=== PATIENT | female | born 1965 | race Caucasian/White ===

== ENCOUNTER 2018-02-05 13:17 | Outpatient (CLI) | payer MEDICARE | END 2018-02-05 13:18 | disposition home or self-care (01) | LOC: BICMAMMO 13:17 | PROVIDERS: ATTEND Family Medicine | DX: Z12.31 Encounter for screening mammogram for malignant neoplasm of breast (principal) | CPT/HCPCS: 77063; 77067 ==

== ENCOUNTER 2018-09-05 14:28 | Outpatient (CLI) | payer MEDICARE ==
[~2018-09-05 14:28] MED LIST: Gadobenate Dimeglumine 529 MG/1 ML (20ML VIAL) ONE
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
== END 2018-09-05 14:29 | disposition home or self-care (01) ==
LOC: BICMRI 14:28
PROVIDERS: ATTEND Physician Assistant Surgical
DX: M51.14 Intervertebral disc disorders with radiculopathy, thoracic region (principal)
CPT/HCPCS: 72157; 82565; A9579

== ENCOUNTER 2018-11-11 17:35 | Emergency (ER) | payer MEDICARE ==
[~2018-11-11 17:35] MED LIST changes: -Gadobenate Dimeglumine 529 MG/1 ML (20ML VIAL) ONE; +ISOVUE-370 76%-LOCM 1 ML ONE
[2018-11-11] MEDS ORDERED: Acetaminophen 500 MG TAB ONE (18:09)
[2018-11-11] MEDS ORDERED: diphenhydrAMINE 50 MG/ML VIAL ONE ×2 (18:09→18:11)
[2018-11-11] MEDS ORDERED: Metoclopramide HCl 10 MG/2 ML VIAL ONE (18:09)
[2018-11-11 18:57] LABS: #Eosinphils 0.1 thou/uL (0.0-0.7); #Lymphocytes 1.9 thou/uL (1.20-3.40); #Monocytes 0.8 thou/uL (0.11-0.59); %Basophils 0.4 % (0.0-1.0); %Eosinophils 1.4 % (0.0-10.0); %Lymphocytes 21.5 % (21.0-51.0); %Monocytes 9.1 % (0.0-10.0); %Neutrophils 67.6 % (42.0-75.0); Hemoglobin 12.1 g/dL (12.0-16.0); Mean Corpuscular HGB CONC 33.7 g/dL (32.0-36.0); Mean Corpuscular Hemoglobin 31.2 pg (27.0-31.0); Mean Corpuscular Volume 92.4 fL (78.0-98.0); Mean Platelet Volume 8.9 fL (7.4-10.4); Platelet Count 228 thou/uL (130-400); RBC Distribution Width 11.1 % (11.5-14.5); Red Blood Cell (RBC) Count 3.87 mill/uL (4.20-5.40); White Blood Cell (WBC) Count 8.8 thou/uL (4.8-10.8)
[2018-11-11 19:02] LABS: Bilirubin Negative (Negative); Blood, Urine Negative (Negative); Clarity CLEAR (Clear); Glucose, Urine (Dipstick) Negative (Negative); Leukocyte Moderate (Negative); Nitrite Negative (Negative); Protein, Urine (Dipstick) Negative (Neg-Trace); Specific Gravity, Urine 1.008 (1.002-1.036); Urobilinogen 0.2 mg/dL (0.2-1.0); pH, Urine 5.5 (5.0-9.0)
[2018-11-11 19:04] LABS: Bacteria/HPF None Seen HPF (None Seen); Hyaline Casts/LPF 0-3 HYALINE CAST LPF (0-3 Hyaline); RBC/HPF 0-3 HPF (0-3); Squamous Epithelial 0-3 HPF (0-3); WBC/HPF 21-50 HPF (0-3)
[2018-11-11 19:18] LABS: ALT (SGPT) 33 U/L (8-55); AST (SGOT) 25 U/L (5-34); Alkaline Phosphatase 44 U/L (40-150); Anion Gap 15 mmol/L (10-20); BUN (Urea Nitrogen) 8 mg/dL (9.8-20.1); Bilirubin, Total 0.8 mg/dL (0.2-1.2); Calc. Creatinine Clearance 0 mL/min (70-130); Calcium 9.4 mg/dL (7.8-10.44); Carbon Dioxide 24 mmol/L (22-29); Chloride 105 mmol/L (98-107); Estimated GFR-MDRD 79; Globulin 2.1 g/dL (2.4-3.5); Glucose 102 mg/dL (70-105); Lipase 24 U/L (8-78); Potassium 3.1 mmol/L (3.5-5.1); Protein, Total 6.1 g/dL (6.0-8.3); Sodium 141 mmol/L (136-145)
[2018-11-11] MEDS ORDERED: Potassium Chloride 20 MEQ TAB ONE (19:24)
--- NOTE | 2018-11-11 20:02 | CT ---
CONTRAST ENHANCED CT IMAGES ABDOMEN AND PELVIS: History: Abdominal pain for two weeks. Technique: Contrast enhanced CT images of the abdomen and pelvis performed. FINDINGS: Images demonstrate the lung bases to be unremarkable. No evidence of free intraperitoneal air is seen. The liver and spleen are unremarkable. The gallbladder has been surgically removed. The pancreas is u nremarkable. Adrenal glands and kidneys are unremarkable. No evidence of periaortic lymphadenopathy is seen. The small bowel is unremarkable. A normal appendix is not visualized. The colon is unremarkable. No evidence of free intraperitoneal air or fluid is seen. IMPRESSION: 1. Unremarkable contrast enhanced CT images of the abdomen and pelvis. No definite evidence of diarrh ea is seen as there is normal appearing stool throughout the colon without evidence of air fluid leve ls. POS: [facility]
== END 2018-11-11 19:50 | disposition home or self-care (01) ==
LOC: ERS 17:35
DX: R10.9 Unspecified abdominal pain (principal); E11.9 Type 2 diabetes mellitus without complications; I10 Essential (primary) hypertension; Z79.899 Other long term (current) drug therapy; Z79.84 Long term (current) use of oral hypoglycemic drugs
CPT/HCPCS: 74177; 80053; 81003; 81015; 83690; 85025; 96365; 96375; J1200; J2765; Q9966

== ENCOUNTER 2019-01-04 10:27 | Outpatient (CLI) | payer MEDICARE ==
--- NOTE | 2019-01-04 11:22 | MRI ---
MRI Thoracic Spine WO Con History: [M 51.24 thoracic disc herniation] Comparison: MRI thoracic spine August 2018 Findings: Multiplanar multisequence MRI of the thoracic spine was performed without contrast. The aortic contour is nonaneurysmal. No retroperitoneal adenopathy. Visualized upper abdomen is unrem arkable. Paraspinal musculature is normal. No marrow infiltrative process. At T7/T8 there is disc desiccation with a central disc protrusion completely effacing the ventral CSF space. No cord signal abnormality. The spinal canal measures approximately 6 mm. There is abutment of the cord. No new disc herniation is appreciated. Mild posterior scarring centrally at T9/T10 with minimal effac ement of ventral CSF space. There is a T2 hyperintense focus right lobe of the liver measuring approximate 4 mm, similar to nichole rison examinations. Impression: Similar appearance of the central posterior disc protrusion at T7/T8 with cord abutment a nd complete effacement of ventral CSF space. No cord signal abnormality is appreciated.
== END 2019-01-04 10:28 | disposition home or self-care (01) ==
LOC: TBSIIMAG 10:27
PROVIDERS: ATTEND Anesthesiology Pain Medicine
DX: M51.24 Other intervertebral disc displacement, thoracic region (principal)
CPT/HCPCS: 72146

== ENCOUNTER 2019-01-06 22:00 | Emergency (ER) | payer MEDICARE ==
[~2019-01-06 22:00] MED LIST changes: -ISOVUE-370 76%-LOCM 1 ML ONE; +Iopamidol 370 76% 100 ML VIAL ONE
[2019-01-06] MEDS ORDERED: Ketorolac Tromethamine 30 MG/ML VIAL ONE (22:31)
[2019-01-06] MEDS ORDERED: Metoclopramide HCl 10 MG/2 ML VIAL ONE (22:31)
[2019-01-06 22:45] LABS: #Basophils 0.1 thou/uL (0.0-0.2); #Eosinphils 0.1 thou/uL (0.0-0.7); #Monocytes 0.7 thou/uL (0.11-0.59); #Neutrophils 5.2 thou/uL (1.40-6.50); %Basophils 0.9 % (0.0-1.0); %Eosinophils 1.6 % (0.0-10.0); %Lymphocytes 24.8 % (21.0-51.0); %Monocytes 8.3 % (0.0-10.0); %Neutrophils 64.4 % (42.0-75.0); Hemoglobin 12.6 g/dL (12.0-16.0); Mean Corpuscular HGB CONC 33.5 g/dL (32.0-36.0); Mean Corpuscular Hemoglobin 31.2 pg (27.0-31.0); Mean Corpuscular Volume 93.1 fL (78.0-98.0); Mean Platelet Volume 8.9 fL (7.4-10.4); Platelet Count 252 thou/uL (130-400); RBC Distribution Width 11.5 % (11.5-14.5); Red Blood Cell (RBC) Count 4.03 mill/uL (4.20-5.40); White Blood Cell (WBC) Count 8.1 thou/uL (4.8-10.8)
[2019-01-06 23:03] LABS: ALT (SGPT) 20 U/L (8-55); AST (SGOT) 16 U/L (5-34); Albumin 4.5 g/dL (3.5-5.0); Alkaline Phosphatase 43 U/L (40-150); Anion Gap 17 mmol/L (10-20); BUN (Urea Nitrogen) 8 mg/dL (9.8-20.1); Bilirubin, Total 1.1 mg/dL (0.2-1.2); Calc. Creatinine Clearance 0 mL/min (70-130); Calcium 9.7 mg/dL (7.8-10.44); Carbon Dioxide 20 mmol/L (22-29); Chloride 104 mmol/L (98-107); Estimated GFR-MDRD 88; Globulin 2.2 g/dL (2.4-3.5); Glucose 142 mg/dL (70-105); Lipase 29 U/L (8-78); Potassium 3.2 mmol/L (3.5-5.1); Protein, Total 6.7 g/dL (6.0-8.3); Sodium 138 mmol/L (136-145)
[2019-01-06 23:08] LABS: Bilirubin Moderate (Negative); Blood, Urine Negative (Negative); Clarity CLEAR (Clear); Glucose, Urine (Dipstick) Negative (Negative); Leukocyte Moderate (Negative); Nitrite Negative (Negative); Protein, Urine (Dipstick) Negative (Neg-Trace); Specific Gravity, Urine 1.011 (1.002-1.036); Urobilinogen 0.2 mg/dL (0.2-1.0)
[2019-01-06 23:11] LABS: Bacteria/HPF None Seen HPF (None Seen); Hyaline Casts/LPF 0-3 HYALINE CAST LPF (0-3 Hyaline); RBC/HPF 0-3 HPF (0-3); Squamous Epithelial 0-3 HPF (0-3); WBC/HPF 21-50 HPF (0-3)
--- NOTE | 2019-01-06 23:28 | CT ---
EXAM: CT ABDOMEN AND PELVIS HISTORY: Abdominal cramping. Pain. COMPARISON: 11/11/2018 Procedure: Multiple contiguous axial images were obtained and a CT of the abdomen and pelvis with IV contrast. C oronal reformats were performed. FINDINGS: Lower Chest: within normal limits. Vessels: Normal caliber aorta Heart: Normal size. No significant pericardial fluid Abdomen: Portal vein:Patent Gallbladder: Surgically absent Liver: within normal limits. Pancreas: within normal limits. Spleen: within normal limits. Adrenals: within normal limits. Kidneys: Symmetric enhancement. No obstructive uropathy. Peritoneum: No ascites or free air, no fluid collection. Bowel: Limited evaluation due to lack of oral contrast. Unremarkable gastric mucosa. Multiple normal caliber small bowel loops. Unremarkable ileocecal junction. Scattered fecal material in a nondistended, nondilated colon. Diverticulosis in the sigmoid colon. No diverticulitis. Appendix is n ot appreciated. No inflammation of the cecal apex. Mesentery and Retroperitoneum: No enlarged mesenteric or retroperitoneal lymph nodes. Abdominal Wall: within normal limits. Pelvis: Reproductive Organs: Hysterectomy. Pelvis: within normal limits. Bladder: within normal limits. Bones: within normal limits. IMPRESSION: No evidence of acute intraabdominal\pelvic abnormality. No significant interval change.
== END 2019-01-07 01:24 | disposition home or self-care (01) ==
LOC: ERS 22:00
DX: R10.9 Unspecified abdominal pain (principal); E11.9 Type 2 diabetes mellitus without complications; F41.9 Anxiety disorder, unspecified; I10 Essential (primary) hypertension; M35.00 Sjogren syndrome, unspecified; M32.9 Systemic lupus erythematosus, unspecified; Z87.891 Personal history of nicotine dependence; Z79.84 Long term (current) use of oral hypoglycemic drugs; Z79.899 Other long term (current) drug therapy
CPT/HCPCS: 36415; 74177; 80053; 81003; 81015; 82010; 83690; 85025; 86140; 87086; 93005; 96365; 96366; 96372; 96375; J0500; J1885; J2765; Q9967

== ENCOUNTER 2019-02-19 07:22 | Outpatient (CLI) | payer MEDICARE ==
--- NOTE | 2019-02-19 13:39 | NM ---
EXAM: Nuclear medicine gastric emptying COMPARISON: None HISTORY: Abdominal pain TECHNIQUE: A nuclear medicine gastric emptying exam was administered after administration of 2.1 mCi of technetium 99m sulfur colloid mixed with eggs. FINDINGS: No gastroesophageal reflux was seen during the examination. 30 minute emptying is 0%. 60 minutes emptying is 21%. 120 minute emptying is 41 %. 180 minute emptying is 65 % T1/2 of gastric emptying is 143 minutes. IMPRESSION: Delayed gastric emptying
== END 2019-02-19 07:23 | disposition home or self-care (01) ==
LOC: NM 07:22
PROVIDERS: ATTEND Physician Assistant Medical
DX: R63.4 Abnormal weight loss (principal); R11.0 Nausea; R10.11 Right upper quadrant pain
CPT/HCPCS: 78264; A9541

== ENCOUNTER 2019-10-15 08:01 | Outpatient (CLI) | payer MEDICARE ==
--- NOTE | 2019-10-15 11:13 | MRI ---
LUMBAR SPINE MRI WITHOUT IV CONTRAST: Date: 10/15/2019 HISTORY: Lumbar radicular pain, bilateral leg and feet pain, and low back pain. COMPARISON: 11/29/2016. FINDINGS: There are generalized disc desiccation changes and ligament and facet hypertrophic changes. No signif icant abnormal marrow signal. Conus medullaris region is unremarkable, terminating at L1. T12-L1 and L1-L2: Mild desiccation change without canal or lateral recess or foraminal stenosis. L2-L3: Disc space narrowing with some diffuse disc bulging and somewhat more focal disc protrusion c hanges involving the posterolateral aspect, worse on the left side, with some left foraminal stenosis . Small Schmorl's node involving anterior aspect without significant marrow edema. L3-L4: Disc space narrowing with central anterior Schmorl's node with diffuse disc bulging, with mod erate canal and lateral recess stenosis, and bilateral foraminal stenosis. L4-L5: Mild lateral recess stenosis. L5-S1: Unremarkable. IMPRESSION: Multilevel variable severity canal, lateral recess, and foraminal stenosis, most marked at L3-L4. Oth er findings as above. POS: [facility]
== END 2019-10-15 08:02 | disposition home or self-care (01) ==
LOC: BICMRI 08:01
PROVIDERS: ATTEND Nurse Practitioner Family
DX: M51.16 Intervertebral disc disorders with radiculopathy, lumbar region (principal); M47.26 Other spondylosis with radiculopathy, lumbar region; M48.061 Spinal stenosis, lumbar region without neurogenic claudication; M53.85 Other specified dorsopathies, thoracolumbar region
CPT/HCPCS: 72148

== ENCOUNTER 2020-06-04 10:30 | Outpatient (CLI) | payer MEDICARE ==
--- NOTE | 2020-06-04 11:52 | MRI ---
MRI Cervical spine without contrast: HISTORY: Acute cervical radiculopathy. Cervical pain with pain shooting down right arm to hand. COMPARISON: None FINDINGS: The craniocervical junction is unremarkable. No significant cord signal abnormality. Paravertebral soft tissues have a normal appearance and normal signal intensity. C1-2:No significant stenosis. C2-3: Small left paracentral disc protrusion without significant central canal or neural foraminal na rrowing. C3-4: Mild disc osteophyte complex with slight effacement of the ventral subarachnoid space. Neural f oramina are patent. C4-5: Mild loss of intervertebral disc height. Broad-based disc osteophyte complex is present. This n arrows the ventral subarachnoid space with slight flattening of the anterior aspect of the spinal cord. No abnormal signal intensity is seen in the spinal cord. Right neural foramen is patent with mi ld left-sided neural foraminal narrowing. C5-6: Mild disc osteophyte complex which results in flattening of the ventral aspect of the subarachn oid space. Mild left and [id number] right-sided neural foraminal narrowing is present. C6-7: Loss of intervertebral disc height. Broad-based disc osteophyte complex is present. Mild right- sided neural foraminal narrowing is present. The left neural foramen and central canal are patent. C7-T1: There is no disc bulge or disc herniation. The central spinal canal and neural foramina are pa tent. IMPRESSION: Mild scattered disc degenerative changes without high-grade central canal or neural foraminal narrowi ng.
== END 2020-06-04 10:31 | disposition home or self-care (01) ==
LOC: BICMRI 10:30
PROVIDERS: ATTEND Anesthesiology Pain Medicine
DX: M50.10 Cervical disc disorder with radiculopathy, unspecified cervical region (principal)
CPT/HCPCS: 72141

== ENCOUNTER 2020-09-25 10:44 | Outpatient (CLI) | payer MEDICARE | END 2020-09-25 10:45 | disposition home or self-care (01) | LOC: BICRAD 10:44 | PROVIDERS: ATTEND Anesthesiology Pain Medicine | DX: M16.11 Unilateral primary osteoarthritis, right hip (principal); M87.051 Idiopathic aseptic necrosis of right femur ==

== ENCOUNTER 2022-01-12 11:09 | Outpatient (CLI) | payer MEDICARE ==
[2022-01-13 01:01] LABS: SARS-CoV-2 PCR by NAA Not Detected (NotDetected)
== END 2022-01-12 11:10 | disposition home or self-care (01) ==
LOC: LABBT 11:09
PROVIDERS: ATTEND Anesthesiology Pain Medicine
DX: Z20.822 Contact with and (suspected) exposure to COVID-19 (principal)
CPT/HCPCS: U0003; U0005

== ENCOUNTER 2022-01-17 09:58 | Outpatient (CLI) | payer MEDICARE ==
[2022-01-13 13:33] VITALS: BMI 30.9
[2022-01-17] MEDS ORDERED: PROPOFOL 200 MG/20 ML VIAL ONE (11:45)
[2022-01-17] MEDS ORDERED: Fentanyl 100 MCG/2 ML VIAL ONE (11:56)
[2022-01-17] MEDS ORDERED: Promethazine HCl 25 MG/ML VIAL ONE (13:07)
== END 2022-01-17 14:27 | disposition home or self-care (01) ==
LOC: MRI 09:58
PROVIDERS: ATTEND Anesthesiology Pain Medicine
DX: M51.16 Intervertebral disc disorders with radiculopathy, lumbar region (principal); M47.26 Other spondylosis with radiculopathy, lumbar region; M48.02 Spinal stenosis, cervical region; M48.062 Spinal stenosis, lumbar region with neurogenic claudication; M50.30 Other cervical disc degeneration, unspecified cervical region; Z79.899 Other long term (current) drug therapy
CPT/HCPCS: 72141; 72148; J2550; J2704; J3010

== ENCOUNTER 2022-07-29 16:51 | Emergency (ER) | payer OTHER ==
[~2022-07-29 16:51] MED LIST changes: -Iopamidol 370 76% 100 ML VIAL ONE; +Iopamidol-370 76% 500 ML 1 ML ONE
[2022-07-29 17:33] LABS: #Eosinphils 0.2 thou/uL (0.0-0.7); #Monocytes 1.1 thou/uL (0.11-0.59); %Basophils 0.2 % (0.0-1.0); %Eosinophils 1.3 % (0.0-10.0); %Lymphocytes 7.5 % (21.0-51.0); %Monocytes 8.2 % (0.0-10.0); %Neutrophils 82.8 % (42.0-75.0); Hemoglobin 10.7 g/dL (12.0-16.0); Mean Corpuscular HGB CONC 32.3 g/dL (32.0-36.0); Mean Corpuscular Hemoglobin 29.8 pg (27.0-31.0); Mean Corpuscular Volume 92.2 fl (78.0-98.0); Mean Platelet Volume 9.8 fL (7.4-10.4); Platelet Count 246 10x3/uL (130-400); RBC Distribution Width 12.2 % (11.5-14.5); Red Blood Cell (RBC) Count 3.57 mill/uL (4.20-5.40); White Blood Cell (WBC) Count 13.2 10x3/uL (4.8-10.8)
[2022-07-29 17:54] LABS: ALT (SGPT) 15 U/L (8-55); AST (SGOT) 13 U/L (5-34); Alkaline Phosphatase 75 U/L (40-110); Anion Gap 15 mmol/L (10-20); BUN (Urea Nitrogen) 36 mg/dL (9.8-20.1); Bilirubin, Total 0.7 mg/dL (0.2-1.2); Calc. Creatinine Clearance 0 mL/min (70-130); Calcium 9.6 mg/dL (7.8-10.44); Carbon Dioxide 18 mmol/L (22-29); Chloride 105 mmol/L (98-107); Estimated GFR 39; Globulin 3.2 g/dL (2.4-3.5); Glucose 207 mg/dL (70-105); Lipase 22 U/L (8-78); Potassium 4.3 mmol/L (3.5-5.1); Protein, Total 7.2 g/dL (6.0-8.3); Sodium 134 mmol/L (136-145)
[2022-07-29 18:51] LABS: SARS-CoV-2 NAA Rapid Test Not Detected (NotDetected)
[2022-07-29 19:24] LABS: Bacteria/HPF 1+ HPF (None Seen); Bilirubin Negative (Negative); Blood, Urine Negative (Negative); Clarity Clear (Clear); Glucose, Urine (Dipstick) Normal (Negative); Ketone, Urine Negative (Negative); Leukocyte 500 Leu/uL (Negative); Nitrite Negative (Negative); Protein, Urine (Dipstick) 10 mg/dL (Neg-Trace); RBC/HPF 0-3 HPF (0-3); Specific Gravity, Urine 1.011 (1.002-1.036); Squamous Epithelial 0-3 HPF (0-3); Urobilinogen Normal mg/dL (Less than 2); WBC/HPF Greater than 50 HPF (0-3)
[2022-07-29] MEDS ORDERED: Morphine 4 MG/ML VIAL ONE ×2 (19:36→19:45)
[2022-07-29] MEDS ORDERED: Ondansetron PF 4 MG/2 ML Vial ONE (19:51)
== END 2022-07-29 22:00 | disposition home or self-care (01) ==
LOC: ERS 16:51
DX: N12 Tubulo-interstitial nephritis, not specified as acute or chronic (principal); N17.9 Acute kidney failure, unspecified; N39.0 Urinary tract infection, site not specified; D64.9 Anemia, unspecified; Z20.822 Contact with and (suspected) exposure to COVID-19; E11.9 Type 2 diabetes mellitus without complications; I10 Essential (primary) hypertension; Z87.891 Personal history of nicotine dependence
CPT/HCPCS: 0240U; 74177; 80053; 83690; 85025; 87086; 94760; 36415; 81003; 81015; 96374; 96375; J2270; J2405; Q9967

== ENCOUNTER 2022-08-01 12:22 | Outpatient (CLI) | payer OTHER | END 2022-08-01 12:23 | disposition home or self-care (01) | LOC: SCSRAD 12:22 | PROVIDERS: ATTEND Family Medicine | DX: J18.1 Lobar pneumonia, unspecified organism (principal); J16.8 Pneumonia due to other specified infectious organisms; R05.1 Acute cough | CPT/HCPCS: 71046 ==

== ENCOUNTER 2022-09-05 12:00 | Outpatient (CLI) | payer OTHER | END 2022-09-05 12:01 | disposition home or self-care (01) | LOC: BICMAMMO 12:00 | PROVIDERS: ATTEND Family Medicine | DX: Z12.31 Encounter for screening mammogram for malignant neoplasm of breast (principal) | CPT/HCPCS: 77063; 77067 ==

== ENCOUNTER 2022-11-03 11:53 | Day surgery (SDC) | payer OTHER ==
[2022-11-01 11:48] VITALS: BMI 30.5
[2022-11-03] MEDS ORDERED: PROPOFOL 200 MG/20 ML VIAL ONE (13:51)
[2022-11-03] MEDS ORDERED: Lidocaine 1% PF 5 ML VIAL ONE (13:51)
== END 2022-11-03 14:55 | disposition home or self-care (01) ==
LOC: SDC 11:53
PROVIDERS: ATTEND Internal Medicine Gastroenterology
PROC: 0DB38ZX Excision of Lower Esophagus, Via Natural or Artificial Opening Endoscopic, Diagnostic (ICD-10-PCS; principal; 2022-11-03)
PROC: 0DB78ZX Excision of Stomach, Pylorus, Via Natural or Artificial Opening Endoscopic, Diagnostic (ICD-10-PCS; 2022-11-03)
PROC: 0D757ZZ Dilation of Esophagus, Via Natural or Artificial Opening (ICD-10-PCS; 2022-11-03)
DX: K22.70 Barrett's esophagus without dysplasia (principal); K31.9 Disease of stomach and duodenum, unspecified; K21.00 Gastro-esophageal reflux disease with esophagitis, without bleeding; K44.9 Diaphragmatic hernia without obstruction or gangrene; R13.10 Dysphagia, unspecified; E11.43 Type 2 diabetes mellitus with diabetic autonomic (poly)neuropathy; M79.7 Fibromyalgia; M35.00 Sjogren syndrome, unspecified; Z87.891 Personal history of nicotine dependence; Z79.1 Long term (current) use of non-steroidal anti-inflammatories (NSAID); Z79.4 Long term (current) use of insulin; Z79.84 Long term (current) use of oral hypoglycemic drugs; Z79.899 Other long term (current) drug therapy; Z88.8 Allergy status to other drugs, medicaments and biological substances
CPT/HCPCS: 88305; J2704

== ENCOUNTER 2023-02-16 08:47 | Outpatient (CLI) | payer OTHER | END 2023-02-16 08:48 | disposition home or self-care (01) | LOC: SCSRAD 08:47 | PROVIDERS: ATTEND Family Medicine | DX: R07.89 Other chest pain (principal) ==

== ENCOUNTER 2023-03-01 10:51 | Outpatient (CLI) | payer OTHER | END 2023-03-01 10:52 | disposition home or self-care (01) | LOC: BICCT 10:51 | PROVIDERS: ATTEND Internal Medicine Gastroenterology | DX: K22.70 Barrett's esophagus without dysplasia (principal); K59.00 Constipation, unspecified; M35.00 Sjogren syndrome, unspecified; K58.9 Irritable bowel syndrome, unspecified; R10.9 Unspecified abdominal pain | CPT/HCPCS: 82565 ==

== ENCOUNTER 2023-04-03 09:57 | Outpatient (CLI) | payer OTHER ==
[2023-03-31 11:05] VITALS: BMI 30.5
[2023-04-03] MEDS ORDERED: PROPOFOL 200 MG/20 ML VIAL ONE (11:30)
== END 2023-04-03 14:20 | disposition home or self-care (01) ==
LOC: MRI 09:57
PROVIDERS: ATTEND Nurse Practitioner Family
DX: M51.16 Intervertebral disc disorders with radiculopathy, lumbar region (principal); M50.121 Cervical disc disorder at C4-C5 level with radiculopathy; M50.122 Cervical disc disorder at C5-C6 level with radiculopathy; M50.123 Cervical disc disorder at C6-C7 level with radiculopathy
CPT/HCPCS: 36416; 72141; 72148; J2704